=== PATIENT | female | born 1980 | race Hispanic/Latino ===

== ENCOUNTER 2019-02-18 20:39 | Observation (INO) | payer MEDICAID, OTHER ==
[~2019-02-18] VITALS: Ht 147.3 cm; Wt 63.5 kg
[2019-02-18] MEDS ORDERED: LACTATED RINGERS 1000ML IV PRN (20:45)
[2019-02-18 21:11] LABS: APPEARANCE,URINE Clear (CLEAR); BILIRUBIN,URINE Negative (NEGATIVE); COLOR,URINE Yellow (YELLOW); GLUCOSE, URINE (UA) Negative (NEGATIVE); KETONES,URINE Negative (NEGATIVE); LEUKOCYTE ESTERASE ,URINE Negative (NEGATIVE); NITRATE,URINE Negative (NEGATIVE); OCCULT BLOOD,URINE Negative (NEGATIVE); PH,URINE 5.5 (5.0-8.0); PROTEIN,URINE Negative (NEGATIVE); UROBILINOGEN,URINE 0.2 mg/dL (0.2-1.0)
== END 2019-02-18 22:10 | disposition home or self-care (01) ==
LOC: EDH 20:39 → LDH 20:40
DX: O46.93 Antepartum hemorrhage, unspecified, third trimester (principal); O09.523 Supervision of elderly multigravida, third trimester; Z3A.34 34 weeks gestation of pregnancy
CPT/HCPCS: 81003; 99284; G0378

== ENCOUNTER 2019-03-21 01:44 | Inpatient (IN) | payer MEDICAID ==
[~2019-03-21] VITALS: Ht 147.3 cm; Wt 66.2 kg
[2019-03-21] MEDS ORDERED: ROPIVACAINE 0.2% 100ML VIAL 100 ML EP SCH ×2 (02:00→03:15)
[2019-03-21 02:23] LABS: APPEARANCE,URINE Clear (CLEAR); BILIRUBIN,URINE Negative (NEGATIVE); COLOR,URINE Yellow (YELLOW); GLUCOSE, URINE (UA) Negative (NEGATIVE); KETONES,URINE Negative (NEGATIVE); LEUKOCYTE ESTERASE ,URINE Negative (NEGATIVE); NITRATE,URINE Negative (NEGATIVE); OCCULT BLOOD,URINE Moderate (NEGATIVE); PH,URINE 5.5 (5.0-8.0); PROTEIN,URINE Trace mg/dL (NEGATIVE)
[2019-03-21 02:54] LABS: BACTERIA,URINE Moderate /HPF (None Seen); MUCUS,URINE Many LPF (None Seen); SQUAMOUS EPITHELIAL CELL,UR Moderate /HPF (0-2)
[2019-03-21] MEDS ORDERED: LACTATED RINGERS 1000ML 1,000 ML IV PRN (03:05)
[2019-03-21] MEDS ORDERED: EPHEDRINE SULFATE 50 MG/ML AMPULE IVP PRN (03:15)
[2019-03-21] MEDS ORDERED: NALOXONE HCL 0.4 MG/1 ML ML IV PRN (03:15)
[2019-03-21] MEDS ORDERED: LACTATED RINGERS 500 ML 500 ML IV PRN (03:15)
[2019-03-21 03:19] LABS: HEMATOCRIT 27.2 % (36-48); MEAN CORPUSCULAR HEMOGLOBIN 20.6 pg (27.0-33.0); MEAN CORPUSCULAR HGB CONC 31.6 g/dL (32.0-36.0); MEAN CORPUSCULAR VOLUME 65.3 fL (79-99); PLATELET COUNT (AUTO) 280 K/uL (130-400); RED BLOOD CELL COUNT(AUTO) 4.16 MIL/uL (4.00-5.50); RED CELL DISTRIBUTION WIDTH 17.7 % (11.0-15.5); WHITE BLOOD COUNT (AUTO) 12.2 K/uL (4.8-10.8)
[2019-03-21] MEDS ORDERED: AMPICILLIN 2GM+NS 100ML 100 ML IV ONE (03:19)
[2019-03-21] MEDS ORDERED: AMPICILLIN 2GM+NS 100ML 100 ML IV SCH (04:00)
[2019-03-21] MEDS ORDERED: AMPICILLIN 1GM+NS 50ML 50 ML IV ONE (06:07)
[2019-03-21] MEDS ORDERED: OXYTOCIN-LR 20 UNITS/1000 ML 1,000 ML IV ONE (06:13)
[2019-03-21] MEDS ORDERED: LIDOCAINE HCL 1% 20 ML VIAL ONE (07:27)
[2019-03-21] MEDS ORDERED: AMPICILLIN 1GM+NS 50ML 50 ML IV SCH (08:00)
[2019-03-21] MEDS ORDERED: OXYTOCIN-LR 20 UNITS/1000 ML 1,000 ML IV SCH (08:30)
[2019-03-21] MEDS ORDERED: WITCH HAZEL 1 PAD TP PRN (08:30)
[2019-03-21] MEDS ORDERED: LANOLIN 30GM OINTMENT TP PRN (08:30)
[2019-03-21] MEDS ORDERED: BENZOCAINE/LANOLIN/ALOE VERA 60 ML AEROSOL TP PRN (08:30)
[2019-03-21] MEDS ORDERED: ACETAMINOPHEN-CODEINE 300/30MG TAB PO PRN (08:30)
[2019-03-21] MEDS ORDERED: DIPH,PERTUSS(ACELL),TET VAC/PF 0.5 ML VIAL IM PRN (08:30)
[2019-03-21] MEDS: DOCUSATE SODIUM 100 MG CAP PO SCH ×2 (09:00→21:10)
[2019-03-21] MEDS ORDERED: IBUPROFEN 600 MG TABLET ONE (10:04)
[2019-03-21] MEDS ORDERED: IBUPROFEN 600 MG TABLET PO PRN (10:15)
[2019-03-21 10:16] VITALS: BP 132/78
[2019-03-21] MEDS ORDERED: CALC500T7 PO (10:40)
[2019-03-21 11:44] VITALS: BP 124/78
[2019-03-21] MEDS ORDERED: ACETAMINOPHEN 325 MG TAB ONE (16:10)
[2019-03-21 16:48] VITALS: BP 118/72
[2019-03-21 19:00] VITALS: BP 103/58
[2019-03-21 23:15] VITALS: BP 120/67
[2019-03-22 03:11] VITALS: BP 129/69
[2019-03-22 07:14] LABS: HEPATITIS Bs ANTIGEN SCREEN P Negative (Negative)
--- NOTE | 2019-03-22 07:50 | NUR ---
PATIENT HAS 1+ EDEMA AND STATES HER LBM WAS ON 03/21/19. PATIENT MEDICATE FOR DISCOMFORT.
[2019-03-22] MEDS: DOCUSATE SODIUM 100 MG CAP PO SCH (08:48)
[2019-03-22 11:02] VITALS: BP 110/66
--- NOTE | 2019-03-22 11:20 | NUR ---
DR. BAH ROUNDED AND DISCHARGED PATIENT TO HOME. PATIENT TO FOLLOW UP IN ONE WEEK WITH DR. BAH.
--- NOTE | 2019-03-22 14:15 | NUR ---
Patient was taken via w/c carrying baby in arms to family vehicle Patient discharged to spouse in stable condition. Denies pain at this time
== END 2019-03-22 14:15 | disposition home or self-care (01) | DRG 560 ==
LOC: EDH 01:44 → OBSVTOIN 01:45 → LDH 01:45 → WSH 10:16
PROC: 10E0XZZ Delivery of Products of Conception, External Approach (ICD-10-PCS; principal; 2019-03-21)
PROC: 3E0234Z Introduction of Serum, Toxoid and Vaccine into Muscle, Percutaneous Approach (ICD-10-PCS; 2019-03-21)
PROC: 0KQM0ZZ Repair Perineum Muscle, Open Approach (ICD-10-PCS; 2019-03-21)
PROC: 3E0R3BZ Introduction of Anesthetic Agent into Spinal Canal, Percutaneous Approach (ICD-10-PCS; 2019-03-21)
PROC: 00HU33Z Insertion of Infusion Device into Spinal Canal, Percutaneous Approach (ICD-10-PCS; 2019-03-21)
DX: O77.0 Labor and delivery complicated by meconium in amniotic fluid (principal); D50.9 Iron deficiency anemia, unspecified; O99.02 Anemia complicating childbirth; O70.1 Second degree perineal laceration during delivery; Z23 Encounter for immunization; Z37.0 Single live birth; Z3A.39 39 weeks gestation of pregnancy
CPT/HCPCS: 36415; 81001; 82120; 85027; 86592; 86850; 86900; 86901; 87340; A4314; G0378; J0290; J2590